=== PATIENT | male | born 1980 | race Caucasian/White ===

== ENCOUNTER 2020-07-26 11:21 | Emergency (ER) | payer BC, SELFPAY ==
[2020-07-26 11:42] VITALS: BP 119/80; PULSE 95; RESP 20; TEMP 36.8; O2SAT 97; BMI 20.7
--- NOTE | 2020-07-26 11:54 | HMH.EDUTC ---
[facility] Disposition Clinical Impression: Abscess Disposition: Home, Self-Care Condition on Discharge: Good Instructions: DI for Skin Abscess Additional Instructions: call leonardo office on tuesday if worsen return to [facility] or ed antibiotics as ordered dressing ice pack 20 mins and remove may repeat every hour for comfort Prescriptions: Sulfamethoxazole/Trimethoprim [Bactrim DS tablet] 1 each PO BID 10 Days #20 tab Prescription Printed levoFLOXacin [Levaquin 500mg tab] 500 mg PO DAILY 7 Days #7 tab Prescription Printed Referrals: PCP,No [Primary Care Provider] - Time of Disposition: 12:49 Medical Decision Making - Osmar Inquiry Pt receiving controlled substance: No Vital Signs: 07/26/20 11:42 Temperature 98.2 F Temperature Source Oral Pulse Rate [Right Brachial] 95 H Respiratory Rate 20 Blood Pressure [Right Arm] 119/80 Blood Pressure Mean [Right Arm] 93 Blood Pressure Source [Right Arm] Automatic Cuff Blood Pressure Position [Right Arm] Sitting 02 Sat by Pulse Oximetry 97 Oxygen Delivery Method Room Air Orders (Tests/Meds): ORDERS Category Date Time Status Wound Culture and Gram Stain Stat Micro 07/26/20 12:24 Ordered - Physician Consults Physician Consulted: leonardo Time: 12:46 Reason -: Other Comment/Response: leonardo at bedside for I&D. cultures obtained and leonardo preformed I&D. recommends pt to go home on levaquin and bactrium and call office on tuesday. if worse return to ed. [facility] HPI - General Chief complaint: Urgent [facility] Stated complaint: Rt knee pain, black scab on it Time Seen by Provider: 07/26/20 11:56 Mode of Arrival: Ambulatory Source of Information: Patient Limitations: No Limitations Description of Symptoms (Recalled from Triage Doc. by RN): PATIENT C/O SWELLING AND REDNESS TO RIGHT KNEE WITH BLACK CENTER. HE STATES IT STARTED A PIMPLE HE NOTICED ON 07/17. HE POPPED IT AND AREA BEGAN WITH SWELLING AND REDNESS. HEENT Symptoms (Recalled from RN notes): No Resp Symptoms (Recalled from RN notes): No Skin Symptoms (Recalled from RN notes): No MS Symptoms (Recalled from RN notes): No Functional Status (Recalled from RN notes): WNL - History of Present Illness Provider Complaint: 40 yr old male presents for swelling and redness to rt knee since 07/17. pt states he popped it and some drainage came out but this am the redness had increased. pt states he took some bactrium his mother had for 2 days, known how old the script was. - Related Data Previous Rx's Medication Instructions Recorded Sulfamethoxazole/Trimethoprim 1 each PO BID 10 Days #20 tab 07/26/20 [Bactrim DS tablet] levoFLOXacin [Levaquin 500mg 500 mg PO DAILY 7 Days #7 tab 07/26/20 tab] Allergies Allergy/AdvReac Type Severity Reaction Status Date / Time acetaminophen Allergy Verified 08/27/18 20:38 [From Darvocet-N] cyclobenzaprine Allergy Verified 08/27/18 20:38 [From Flexeril] doxycycline Allergy Verified 08/27/18 20:38 ibuprofen Allergy Verified 08/27/18 20:38 methocarbamol Allergy Verified 08/27/18 20:38 naproxen Allergy Verified 08/27/18 20:38 propoxyphene Allergy Verified 08/27/18 20:38 [From Darvocet-N] - Worker's Comp Is this a Worker's Comp case?: No H History - Hepatitis A Screen Drug use history?: No High risk sexual behaviors?: No History of sexually transmitted infection?: No Currently employed?: No Childcare worker?: No Do you have indoor plumbing?: Yes Do you have electricity?: Yes Attestation statement:: This patient has been screened for Hepatitis A risk factors. I have reviewed the patient's past medical history: Yes Fractures: Yes (RIB,LEFT WRIST) - Social History Smoking Status: Current every day smoker Tobacco Type: cigarettes # Packs/Day (cigarettes): 1 Alcohol Intake: never Occupational Status: other ROS Obtained: Yes Systems reviewed as appropriate & no additional complaints - Constitutional Constitutional: Re
--- NOTE | 2020-07-26 12:37 | P.PCN_ITS ---
[facility] Procedure Note Procedure Note:: Preoperative diagnosis: Right lower extremity abscess/cellulitis Postoperative diagnosis: Right lower extremity abscessed sebaceous cyst (just below the knee) Procedure: Incision and drainage of right lower extremity abscessed sebaceous cyst (just below knee) Surgeon: Aaron Malt Specifications Control Assistant: Oscar Paulino APRN Anesthesia: None Description: After informed consent was obtained the patient's right knee region was prepped with chlorhexidine. A small amount of fluid was aspirated with an 18-gauge needle. This fluid was obtained for Gram stain/culture. A small incision was made overlying the central eschar and a moderate amount of sebaceous-type fluid was evacuated utilizing compression. A dressing was applied. Estimated blood loss: 1ml Specimens: Fluid obtained for Gram stain/culture Complications: No immediate
[2020-07-26 12:53] VITALS: BP 119/80; PULSE 95; RESP 20; TEMP 36.8; O2SAT 97
== END 2020-07-26 12:59 | disposition home or self-care (01) ==
PROVIDERS: Emergency Provider Nurse Practitioner Family
DX: L02.415 Cutaneous abscess of right lower limb (principal); F17.210 Nicotine dependence, cigarettes, uncomplicated
CPT/HCPCS: 10060; 87070; 87077; 87186; 87205; 99202; G0463

== ENCOUNTER 2022-06-25 08:42 | Emergency (ER) | payer BC, SELFPAY ==
[2022-06-25] VITALS (14 sets, daily range): BP systolic 98–113; BP diastolic 55–80; PULSE 68–96; RESP 16; TEMP 36.5–36.6; O2SAT 95–98; BMI 20.7
--- NOTE | 2022-06-25 09:00 | HMH.EDGENADL ---
Discharge Plan Disposition Patient Disposition: Home, Self-Care Condition: Good Prescriptions Prescriptions: New ondansetron 4 mg tablet,disintegrating 4 mg PO Q8H PRN (Reason: nausea and vomiting) Qty: 10 0RF famotidine [Pepcid] 40 mg tablet 40 mg PO DAILY Qty: 30 0RF No Action sulfamethoxazole-trimethoprim [Bactrim DS] 800-160 mg tablet 1 tab PO BID Qty: 14 0RF levofloxacin 500 mg tablet 500 mg PO DAILY Qty: 7 0RF sulfamethoxazole-trimethoprim 1 EACH tablet 1 each PO BID 10 Days Qty: 20 0RF levofloxacin 500 MG tablet 500 mg PO DAILY 7 Days Qty: 7 0RF Referrals Follow up/Referrals: Provider,Referral, MD [Primary Care Provider] - See instructions Activity Restrictions/Add. Instructions Additional Instructions/Restrictions: You are being provided with a list of physicians available for follow-up of your condition. Please call a physician on this list to arrange a follow-up appointment as soon as possible. Clear liquids only for 12 to 24 hours, then advance diet as tolerated. Drink plenty of fluids. Pepcid as prescribed. Zofran as needed for nausea and vomiting. Additional instructions for VOMITING/DIARRHEA: eturn immediately if severe abdominal pain, uncontrollable vomiting, shortness of breath, fever, bloody diarrhea, vomiting of blood or abdominal distention. Clinical Impressions Clinical Impression: Acute gastroenteritis, Acute dehydration Instructions Patient Instructions: DI for Viral Gastroenteritis -- Adult, DI for Dehydration -- Adult Discharge ED Provider: Augustin Olivera Adult HPI General Chief complaint: Nausea/Vomiting/Diarrhea Stated complaint: vomiting, diarrhea, dizzy Time Seen by Provider: 06/25/22 08:53 Mode of Arrival: Ambulatory Source of Information: Patient and Spouse Limitations: No Limitations Description of Symptoms (Recalled from ER Triage Doc. by RN): Presents with n/v/d since yesterday with lightheadedness. 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 History of Present Illness HPI narrative: History obtained from patient and . He has been sick since yesterday morning with profuse watery diarrhea, vomiting, intermittent sharp stabbing abdominal pains, feeling hot and cold, dry mouth. Temperature not taken at home. He was exposed to a pediatric age relative who had similar symptoms. No other exposures. No recent antibiotics or travel. No prior abdominal surgeries. No chronic medical problems. He is not on any prescription medications. Says that over a year ago a provider wanted to send him to a compensation and benefits advisor for EGD and colonoscopy because of vomiting blood. He has never seen a compensation and benefits advisor. Says he has been told he has an ulcer. He is a smoker. Nondrinker. Uses marijuana, no other drugs. Related Data Previous Rx's Medication Instructions Recorded levofloxacin 500 mg tablet 500 mg PO DAILY 7 days #7 tabs 07/26/20 sulfamethoxazole 800 1 each PO BID 10 days #20 tabs 07/26/20 mg-trimethoprim 160 mg tablet levofloxacin 500 mg tablet 500 mg PO DAILY #7 tabs 07/30/20 sulfamethoxazole 800 1 tab PO BID #14 tabs 07/30/20 mg-trimethoprim 160 mg tablet (Bactrim DS) famotidine 40 mg tablet (Pepcid) 40 mg PO DAILY #30 tabs 06/25/22 ondansetron 4 mg disintegrating 4 mg PO Q8H PRN nausea and 06/25/22 tablet vomiting #10 tabs Allergies Allergy/AdvReac Type Severity Reaction Status Date / Time acetaminophen Allergy Verified 08/06/20 14:08 [From Darvocet-N] cyclobenzaprine Allergy Verified 08/06/20 14:08 [From Flexeril] doxycycline Allergy Verified 08/06/20 14:08 ibuprofen Allergy Verified 08/06/20 14:08 methocarbamol Allergy Verified 08/06/20 14:08 naproxen Allergy Verified 08/06/20 14:08 propoxyphene Allergy Verified 08/06/20 14:08 [From Darvocet-N] [facility] Disclaimer: The information contained in this section may have been updated after the patient was seen, as this information can be updated by other
[2022-06-25 09:22] LABS: Lymphocytes # 0.7 K/mm3 (0.7-4.5); Monocytes # 0.7 K/mm3 (0.1-1.0)
[2022-06-25 09:26] LABS: Basophils % 0.5 % (0.1-2.0); Eosinophils % 0.3 % (0.1-12.0); Hematocrit 55.9 % (42.0-52.0); Lymphocytes % 8.5 % (10-50); Mean Corpuscular HGB Conc 34.2 g/dL (31.8-35.4); Mean Corpuscular Hemoglobin 32.4 pg (27.0-31.2); Mean Corpuscular Volume 94.8 fl (80-94); Mean Platelet Volume 12.8 fl (7.4-10.4); Monocytes % 8.6 % (1.7-9.3); Neutrophils # 6.3 K/mm3 (1.8-7.8); Platelet Count 106 K/mm3 (142-424); Red Cell Distribution Width 12.7 % (11.5-17.5); White Blood Count 7.6 K/mm3 (4.8-10.8)
[2022-06-25 09:28] LABS: Chloride 100 mmol/L (98-107); Hemoglobin 19.1 g/dL (14.1-18.0); Potassium 3.9 mmoL/L (3.5-5.1); Sodium 137 mmol/L (136-145)
[2022-06-25 09:30] LABS: Alanine Aminotransferase 33 U/L (12-78); Alkaline Phosphatase 79 U/L (38-126); Anion Gap 18.9 mEq/L (5-15); Aspartate Amino Transferase 39 U/L (17-59); Bilirubin,Total 1.5 mg/dl (0.2-1.3); Blood Urea Nitrogen 24 mg/dl (9-20); Carbon Dioxide 22 mmol/L (22.0-30.0); Creatinine Clearance Estimated 63 mL/min (50-200); Estimated Glomerular Filt Rate 56 ml/min (>60); GFR (African American) 68 ML/MIN (>60); Lipase 142 U/L (23-300)
[2022-06-25 09:31] LABS: Albumin Level 5.5 g/dl (3.5-5.0); Albumin/Globulin Ratio 1.8 (1.1-1.8); Calcium 9.3 mg/dl (8.4-10.2); Globulin 3.1 g/dL (1.3-3.2); Glucose 125 mg/dl (74-100); Total Protein,Serum 8.6 g/dl (6.3-8.2)
--- NOTE | 2022-06-25 10:40 | PC.NURSE ---
second warm blanket given
--- NOTE | 2022-06-25 11:34 | PC.NURSE ---
rounded on pt no complaints at this time, @ bs
== END 2022-06-25 14:08 | disposition home or self-care (01) ==
PROVIDERS: Emergency Provider Emergency Medicine
DX: K52.9 Noninfective gastroenteritis and colitis, unspecified (principal); E86.0 Dehydration; R10.9 Unspecified abdominal pain
CPT/HCPCS: 80053; 83690; 85025; 96361; 96374; 96375; 99285; J2405

== ENCOUNTER 2022-10-22 17:37 | Emergency (ER) | payer BC, SELFPAY ==
[2022-10-22 17:38] VITALS: BP 120/82; PULSE 75; RESP 18; TEMP 36.7; O2SAT 98; BMI 20.7
--- NOTE | 2022-10-22 18:04 | HMH.EDGENADL ---
Discharge Plan Disposition Patient Disposition: Home, Self-Care Prescriptions Prescriptions: New oxycodone 5 mg tablet 5 mg PO Q8H PRN (Reason: pain) Qty: 10 0RF No Action sulfamethoxazole-trimethoprim [Bactrim DS] 800-160 mg tablet 1 tab PO BID Qty: 14 0RF levofloxacin 500 mg tablet 500 mg PO DAILY Qty: 7 0RF ondansetron 4 mg tablet,disintegrating 4 mg PO Q8H PRN (Reason: nausea and vomiting) Qty: 10 0RF famotidine [Pepcid] 40 mg tablet 40 mg PO DAILY Qty: 30 0RF sulfamethoxazole-trimethoprim 1 EACH tablet 1 each PO BID 10 Days Qty: 20 0RF levofloxacin 500 MG tablet 500 mg PO DAILY 7 Days Qty: 7 0RF Referrals Follow up/Referrals: Provider,Referral, MD [Primary Care Provider] - See instructions Activity Restrictions/Add. Instructions Additional Instructions/Restrictions: Return the emergency department for worsening pain within the next 8 hours otherwise follow-up with your primary care physician within the next few days call Dr. Henderson for appointment Clinical Impressions Clinical Impression: Back pain Instructions Patient Instructions: DI for Low Back Pain Discharge ED Provider: Deepak Gaming General Adult HPI General Chief complaint: Back Pain/Injury Stated complaint: back pain Time Seen by Provider: 10/22/22 18:00 History of Present Illness HPI narrative: 42-year-old male presents with back pain. He says he has chronic back pain but it has worsened acutely. He has no fever chills no direct trauma to his back or injuries. No nausea vomiting chest pain abdominal pain. He says he has missed work because the pain is worsening. Related Data Previous Rx's Medication Instructions Recorded levofloxacin 500 mg tablet 500 mg PO DAILY 7 days #7 tabs 07/26/20 sulfamethoxazole 800 1 each PO BID 10 days #20 tabs 07/26/20 mg-trimethoprim 160 mg tablet levofloxacin 500 mg tablet 500 mg PO DAILY #7 tabs 07/30/20 sulfamethoxazole 800 1 tab PO BID #14 tabs 07/30/20 mg-trimethoprim 160 mg tablet (Bactrim DS) famotidine 40 mg tablet (Pepcid) 40 mg PO DAILY #30 tabs 06/25/22 ondansetron 4 mg disintegrating 4 mg PO Q8H PRN nausea and 06/25/22 tablet vomiting #10 tabs oxycodone 5 mg tablet 5 mg PO Q8H PRN pain #10 tabs 10/22/22 Allergies Allergy/AdvReac Type Severity Reaction Status Date / Time acetaminophen Allergy Verified 08/06/20 14:08 [From Darvocet-N] cyclobenzaprine Allergy Verified 08/06/20 14:08 [From Flexeril] doxycycline Allergy Verified 08/06/20 14:08 ibuprofen Allergy Verified 08/06/20 14:08 methocarbamol Allergy Verified 08/06/20 14:08 naproxen Allergy Verified 08/06/20 14:08 propoxyphene Allergy Verified 08/06/20 14:08 [From Darvocet-N] [facility] Disclaimer: The information contained in this section may have been updated after the patient was seen, as this information can be updated by other users. Social History Smoking Status: Current every day smoker tobacco type: cigarettes packs per day: 1 alcohol intake: never current occupational status: other Travel in the last 8 weeks: None ROS Obtained: Yes All systems reviewed & no additional complaints except as documented Constitutional Constitutional: Denies frequent falls and Denies headache(s) Eyes Eyes: Denies diplopia ENT Ears, Nose, Mouth, and Throat: Denies headache(s) Cardiovascular Cardiovascular: Denies dyspnea Respiratory Respiratory: Denies dyspnea Gastrointestinal Gastrointestingal: Denies constipation Genitourinary Male Genitourinary: Denies flank pain Musculoskeletal Musculoskeletal: Denies joint swelling Integumentary/Breasts Skin/Breast: Denies rash Neurologic Neurologic: Denies frequent falls and Denies headache(s) Endocrine Endocrine: Denies flushing Hematologic/Lymphatic Henatologic/Lymphatic: Denies easy bruising Allergic/Immunologic Allergic/Immunologic: Denies urticaria Physical Exam General General appearance: alert a
[2022-10-22 18:30] VITALS: BP 106/76; PULSE 75; O2SAT 97
--- NOTE | 2022-10-22 19:13 | PC.NURSE ---
Gave report to shift supervisor
[2022-10-22 19:20] VITALS: BP 112/80; PULSE 71; RESP 16; TEMP 36.7; O2SAT 97
== END 2022-10-22 19:20 | disposition home or self-care (01) ==
LOC: ER 19:29
PROVIDERS: Emergency Provider Emergency Medicine
DX: M54.9 Dorsalgia, unspecified (principal); G89.29 Other chronic pain; F17.210 Nicotine dependence, cigarettes, uncomplicated
CPT/HCPCS: 96372; 99283; 99284